=== PATIENT | male | born 1980 | race Caucasian/White ===

== ENCOUNTER 2020-09-30 12:32 | Emergency (ER) | payer OTHER, SELFPAY ==
[2020-09-30 13:01] VITALS: BP 140/94; PULSE 96; RESP 17; TEMP 36.9; O2SAT 98
--- NOTE | 2020-09-30 18:02 | ED.GENADULT ---
HPI - General Adult General Chief complaint: Eye Problems Stated complaint: L eye irritation Time Seen by Provider: 09/30/20 14:22 Source: patient Mode of arrival: ambulatory Limitations: no limitations History of Present Illness HPI narrative: Patient presents with chief complaint of feeling of foreign body to the left upper eye. Patient states that he used Eye-Stream to flush his eyes. He states that he still feels foreign body like sensation and irritation to the upper left eyelid. He denies any change in vision or any ocular drainage. Patient denies wearing contact lenses. Related Data Allergies Allergy/AdvReac Type Severity Reaction Status Date / Time No Known Allergies Allergy Unknown Verified 09/30/20 14:12 Review of Systems Review of Systems: Narrative: CONSTITUTIONAL: Denies fever, chills, or sweats. EYES: Reports foreign body sensation denies visual changes, redness, or discharge. ENT: Denies rhinorrhea, congestion, sore throat, or otalgia. CARDIOVASCULAR: Denies chest pain, palpitations, or edema. RESPIRATORY: Denies cough or dyspnea. GASTROINTESTINAL: Denies abdominal pain, nausea, vomiting, or diarrhea. GENITOURINARY: Denies dysuria or hematuria. SKIN: Denies rash or itching. MUSCULOSKELETAL: Denies back pain, joint pain, or myalgia. NEUROLOGIC: Denies headache, numbness, dizziness, or weakness. PSYCHIATRIC: Denies anxiety or depression. Exam Narrative: Exam Narrative: GENERAL: Well-appearing, well-nourished, and in no acute distress. HEAD: Normocephalic, atraumatic. EYES: PERRLA and EOMI. patient is not very cooperative with fluorescein stain. Patient fighting holding eyes closed. Attempted to stain the patient's eye and use blacklight as well as evaluate the inner upper and lower eyelids for any foreign bodies with eversion of eyelid. Patient not cooperative despite numbing and attempts to relax. Patient reports his tenderness to upper left eyelid. Thought there was a small area of uptake at 8oclock but patient denies tenderness and foreign body not visualized. ENT: Nares clear, no rhinorrhea or epistaxis. Mucous membranes moist. Oropharynx without tonsillar hypertrophy exudate or other lesions. Bilateral TMs pearly villegas nonbulging CHEST: Clear to auscultation. No respiratory distress. No wheezes rales or rhonchi HEART: Regular rate and rhythm. No murmur heard. Normal peripheral pulses. EXTREMITIES: Normal range of motion. No edema. SKIN: Warm, dry, no rash. NEURO: No focal deficits. Alert and oriented x3. PSYCH: Normal mood and affect. Course Vital Signs Vital signs: Vital Signs Temperature 98.5 F 09/30/20 13:01 Pulse Rate 96 09/30/20 13:01 Respiratory Rate 17 09/30/20 13:01 Blood Pressure 140/94 H 09/30/20 13:01 Pulse Oximetry 98 09/30/20 13:01 Temperature 98.5 F 09/30/20 13:01 Pulse Rate 96 09/30/20 13:01 Respiratory Rate 17 09/30/20 13:01 Blood Pressure 140/94 H 09/30/20 13:01 Pulse Oximetry 98 09/30/20 13:01 Medical Decision Making MDM Narrative Medical decision making narrative: Patient was not very cooperative with his eye exam today for thorough evaluation. I told him that he needs to follow-up with the manager maritime today or tomorrow for further investigation to make sure he does not have a retained foreign body. Patient given antibiotic eyedrops. Patient instructed to return to emergency department if he has any emergent symptoms. Vital Signs Vital Signs: Vital Signs Temperature 98.5 F 09/30/20 13:01 Pulse Rate 96 09/30/20 13:01 Respiratory Rate 17 09/30/20 13:01 Blood Pressure 140/94 H 09/30/20 13:01 Pulse Oximetry 98 09/30/20 13:01 Temperature 98.5 F 09/30/20 13:01 Pulse Rate 96 09/30/20 13:01 Respiratory Rate 17 09/30/20 13:01 Blood Pressure 140/94 H 09/30/20 13:01 Pulse Oximetry 98 09/30/20 13:01 Discharge Plan Discharge Clinical Impression: Irritation of eyelid Patient Disposition: Home, Self-Care
== END 2020-09-30 15:39 | disposition home or self-care (01) ==
PROVIDERS: Emergency Provider Emergency Medicine
DX: H02.9 Unspecified disorder of eyelid (principal)
CPT/HCPCS: 99283; A9270

== ENCOUNTER 2022-08-26 19:57 | Emergency (ER) | payer OTHER, MEDICAID, SELFPAY ==
[2022-08-26 20:04] VITALS: BP 156/80; PULSE 67; RESP 16; TEMP 36.8; O2SAT 99
--- NOTE | 2022-08-26 21:04 | ED.SKABFB ---
HPI - Skin/Abscess/Foreign Bdy General Chief complaint: Skin/Abscess/Foreign Body Stated complaint: skin problems Time Seen by Provider: 08/26/22 20:31 History of Present Illness HPI narrative: Patient is a 32-year-old male here for evaluation of pruritic rash to his hands and bilateral arms x 5 days. Has history of similar in the past that was attributed to eczema and it resolved after use of a topical steroid cream. Attempted to contact his performance improvement specialist but was unable to be seen until next month. He denies any pain to the lesions. No insect bites or tick bites. No new soaps or detergents. Related Data Home Medications Medication Instructions Recorded Confirmed meloxicam 15 mg tablet 15 mg PO DAILY PRN 12/18/21 Allergies Allergy/AdvReac Type Severity Reaction Status Date / Time No Known Allergies Allergy Unknown Verified 08/26/22 20:04 Review of Systems Review of Systems: Gen.: Denies fevers or chills Eyes: Denies eye pain or visual change ENT: Denies congestion Respiratory: Denies shortness of breath or cough CV: Denies chest pain or palpitations GI: Denies abdominal pain nausea, emesis or diarrhea denies burning, urgency, frequency or hematuria Musculoskeletal: Denies back pain or muscle pain Neuro: Denies numbness, tingling, weakness or focal weakness Skin: Reports rash Except as documented, all other systems reviewed and negative PMFSH Past Medical History Medical History Achilles tendonitis Bone spur of foot Social History Social History Social History: current smoker Smoking status: Current every day smoker Alcohol intake: current Alcohol use details: socially Exam Narrative: APPEARANCE: Well appearing, no pain in distress, well-nourished. Head: Normocephalic and atraumatic. EYES: PERRLA/EOMI, conjunctivae clear NOSE: No nasal drainage EARS: External ear normal in appearance THROAT: Oropharynx is clear. Mucous membranes are moist. NECK: Supple. No adenopathy, no masses. RESPIRATORY: Airway patent, respirations nonlabored. Clear to auscultation bilaterally, no rales, rhonchi, wheezing. CARDIOVASCULAR: Regular rate and rhythm without murmurs, rubs, or gallops. ABDOMINAL: Normoactive bowel sounds. Soft, nontender, nondistended. No rebound tenderness or guarding. MUSCULOSKELETAL: Extremities are warm and well-perfused. Moves all extremities well. No edema. NEURO: Normal speech. No focal neurologic deficits. SKIN: Patient has scaly rash to his interdigital webs and in his antecubital fossa's bilaterally with overlying erythema and excoriation PSYCHIATRIC: Normal affect/mood. Course Vital Signs Vital signs: Vital Signs Temperature 98.2 F 08/26/22 20:04 Pulse Rate 67 08/26/22 20:04 Respiratory Rate 16 08/26/22 20:04 Blood Pressure 156/80 H 08/26/22 20:04 Pulse Oximetry 99 08/26/22 20:04 Temperature 98.2 F 08/26/22 20:04 Pulse Rate 67 08/26/22 20:04 Respiratory Rate 16 08/26/22 20:04 Blood Pressure 156/80 H 08/26/22 20:04 Pulse Oximetry 99 08/26/22 20:04 MDM - Skin/Abscess/Foreign Bdy MDM Narrative Medical decision making narrative: 42 year old male here for evaluation of rash to hands/arms consistent with eczema. Previously improved with topical steroid which he is out of. Will rx topical steroid and d/c home with dermatology f/u. Discharge Plan Discharge Clinical Impression: Eczema Patient Disposition: Home, Self-Care Condition: Stable Instructions: Antibiotic Form, Eczema (ED) Additional Instructions: Your exam is consistent with eczema. Please use the clobetasol cream as prescribed. Follow-up with a performance improvement specialist next week. Prescriptions: New clobetasol 0.05 % ointment 1 applic topical DAILY Qty: 60 0RF No Action meloxicam 15 mg tablet 15 mg PO DAILY PRN Follow-up/Referrals: PHYSICIAN,ON
== END 2022-08-26 20:49 | disposition home or self-care (01) ==
LOC: ANHED 20:42
PROVIDERS: Emergency Provider Physician Assistant; PCP Nurse Practitioner Family
DX: L30.9 Dermatitis, unspecified (principal)
CPT/HCPCS: 99283